=== PATIENT | female | born 1985 | race Caucasian/White ===

== ENCOUNTER 2019-05-13 11:43 | Emergency (ER) | payer SELFPAY ==
[~2019-05-13] VITALS: Ht 170.1 cm; Wt 90.7 kg
[2019-05-13] MEDS ORDERED: NAPROSYN500 MG PO (13:35)
== END 2019-05-13 13:39 | disposition home or self-care (01) ==
LOC: ED 11:43
DX: N75.0 Cyst of Bartholin's gland (principal)